=== PATIENT | male | born 1955 | race Caucasian/White ===

== ENCOUNTER 2020-09-30 08:23 | Emergency (ER) | payer OTHER, BC ==
[~2020-09-30] VITALS: Ht 172.7 cm; Wt 97.5 kg
[~2020-09-30 08:23] MED LIST: DOXYCYCLINE MO100 MG PO
[2020-09-30 10:05] LABS: HEMOGLOBIN 16.7 gm/dl (14.0-17.5); RED BLOOD COUNT 5.36 M/UL (4.20-5.50); WHITE BLOOD COUNT 14.7 K/UL (4.5-11.0)
[2020-09-30] MEDS ORDERED: OMEPRAZOLE40 MG PO (11:39)
[2020-09-30] MEDS ORDERED: ALDACTONE 25MG25 MG PO (11:41)
[2020-09-30] MEDS ORDERED: AMLODIPINE BESY10 MG PO (11:43)
== END 2020-09-30 13:00 | disposition home or self-care (01) ==
LOC: ER1 08:23 → CDU 09:52 → ER1 13:00
PROVIDERS: Family Medicine
DX: S82.141A Displaced bicondylar fracture of right tibia, initial encounter for closed fracture (principal); I10 Essential (primary) hypertension; Z88.2 Allergy status to sulfonamides; Z79.899 Other long term (current) drug therapy; W00.2XXA Other fall from one level to another due to ice and snow, initial encounter; Y92.89 Other specified places as the place of occurrence of the external cause; Y99.0 Civilian activity done for income or pay; Z20.822 Contact with and (suspected) exposure to COVID-19
CPT/HCPCS: 36415; 71045; 73564; 73700; 80053; 85025; 85610; 93005; 96374; 96375; 99285; J2270; J2405; U0002